=== PATIENT | female | born 1930 | race Caucasian/White ===

== ENCOUNTER → 2017-02-07 | Emergency (ER) | payer OTHER ==
[2017-02-07 19:09] LABS: ADD MAN DIFF? NO
[2017-02-07 19:11] LABS: WHITE BLOOD COUNT 8.8 10^3/ul (4.8-10.8)
[2017-02-07 19:11] LABS: BASOPHIL # 0.1 10^3/ul (0.0-0.1); BASOPHILS % 0.6 % (0.0-2.0); EOSINOPHILS # 0.1 10^3/ul (0.0-0.5); EOSINOPHILS % 1.3 % (0.0-7.0); HEMATOCRIT 35.9 % (37.0-47.0); HEMOGLOBIN 11.2 g/dl (12.0-16.0); LYMPHOCYTES # 3.8 10^3/ul (0.8-2.9); MEAN CORPUSCULAR HEMOGLOBIN 25.6 pg (29.0-33.0); MEAN CORPUSCULAR HGB CONC 31.2 g/dl (32.0-37.0); MEAN CORPUSCULAR VOLUME 82.2 fl (82.0-101.0); MEAN PLATELET VOLUME 10.3 fl (7.4-10.4); MONOCYTE # 0.7 10^3/ul (0.3-0.9); MONOCYTES % 7.5 % (0.0-11.0); NEUTROPHIL # 4.2 10^3/ul (1.6-7.5); NEUTROPHILS % 47.4 % (39.0-77.0); PLATELET COUNT 295 10^3/UL (140-415); RED BLOOD COUNT 4.37 10^6/ul (4.20-5.40); RED CELL DISTRIBUTION WIDTH 15.9 % (11.5-14.5)
[2017-02-07 19:32] LABS: ALANINE AMINOTRANSFERASE 27 IU/L (13-69); ALBUMIN 3.9 g/dl (3.3-4.9); ALBUMIN/GLOBULIN RATIO 1.18; ALKALINE PHOSPHATASE 87 IU/L (42-121); ANION GAP 19 (8-16); ASPARTATE AMINO TRANSFERASE 39 IU/L (15-46); BILIRUBIN,INDIRECT 0.4 mg/dl (0-1.1); BILIRUBIN,TOTAL 0.4 mg/dl (0.2-1.3); BLOOD UREA NITROGEN 9 mg/dl (7-20); CALCIUM 8.9 mg/dl (8.4-10.2); CARBON DIOXIDE 28 mmol/L (21-31); CHLORIDE 96 mmol/L (97-110); CREATININE 0.72 mg/dl (0.44-1.00); GLUCOSE 96 mg/dl (70-220); POTASSIUM 3.5 mmol/L (3.5-5.1); SODIUM 139 mmol/L (135-144); TOTAL PROTEIN 7.2 g/dl (6.1-8.1)
[2017-02-07 19:40] LABS: INR 1.11; PROTIME 14.5 Sec (11.9-14.9); PT RATIO 1.1
[2017-02-07 19:42] LABS: TROPONIN-I 0.016 ng/ml (0.00-0.12)
[2017-02-07 19:43] LABS: LIPASE 112 U/L (23-300)
[2017-02-07 19:53] LABS: PARTIAL THROMBOPLASTIN TIME 32.9 Sec (25.0-35.0)
[2017-02-07 21:53] LABS: ADD UMIC YES; UR ASCORBIC ACID NEGATIVE (NEGATIVE); UR BACTERIA FEW /HPF (NONE SEEN); UR BILIRUBIN (Dip) NEGATIVE (NEGATIVE); UR BLOOD (Dip) NEGATIVE (NEGATIVE); UR CLARITY CLEAR (CLEAR); UR COLOR YELLOW (YELLOW); UR GLUCOSE (Dip) NEGATIVE (NEGATIVE); UR KETONES (Dip) NEGATIVE (NEGATIVE); UR LEUKOCYTE ESTERASE (Dip) TRACE Leu/ul (NEGATIVE); UR NITRITE (Dip) NEGATIVE (NEGATIVE); UR RBC 1 /HPF (0-5); UR SPECIFIC GRAVITY (Dip) 1.012 (1.003-1.030); UR TOTAL PROTEIN (Dip) NEGATIVE (NEGATIVE); UR UROBILINOGEN (Dip) NEGATIVE (NEGATIVE); UR WBC 2 /HPF (0-5)
[2017-02-07] MEDS: ACETAMINOPHEN 325 MG TAB PO (22:41)
== END | disposition home or self-care (01) ==
LOC: E/R 14:09
DX: R10.31 Right lower quadrant pain (principal); R11.10 Vomiting, unspecified; I10 Essential (primary) hypertension; E11.9 Type 2 diabetes mellitus without complications; Z79.4 Long term (current) use of insulin; Z79.84 Long term (current) use of oral hypoglycemic drugs
CPT/HCPCS: 36415; 71010; 74176; 80053; 81001; 82962; 83690; 84484; 85025; 85610; 85730; 99285-25

== ENCOUNTER 2017-02-16 16:16 | Emergency (ER) | payer OTHER ==
[2017-02-16 17:19] LABS: ADD MAN DIFF? NO
[2017-02-16 17:23] LABS: WHITE BLOOD COUNT 9.5 10^3/ul (4.8-10.8)
[2017-02-16 17:23] LABS: BASOPHIL # 0.1 10^3/ul (0.0-0.1); BASOPHILS % 0.7 % (0.0-2.0); EOSINOPHILS # 0.2 10^3/ul (0.0-0.5); EOSINOPHILS % 1.7 % (0.0-7.0); HEMATOCRIT 34.1 % (37.0-47.0); LYMPHOCYTES # 3.3 10^3/ul (0.8-2.9); LYMPHOCYTES % 34.5 % (15.0-51.0); MEAN CORPUSCULAR HEMOGLOBIN 26.6 pg (29.0-33.0); MEAN CORPUSCULAR HGB CONC 32.3 g/dl (32.0-37.0); MEAN CORPUSCULAR VOLUME 82.6 fl (82.0-101.0); MEAN PLATELET VOLUME 10.1 fl (7.4-10.4); MONOCYTE # 0.9 10^3/ul (0.3-0.9); MONOCYTES % 9.5 % (0.0-11.0); NEUTROPHIL # 5.1 10^3/ul (1.6-7.5); NEUTROPHILS % 53.2 % (39.0-77.0); PLATELET COUNT 293 10^3/UL (140-415); RED BLOOD COUNT 4.13 10^6/ul (4.20-5.40); RED CELL DISTRIBUTION WIDTH 16.6 % (11.5-14.5)
[2017-02-16] MEDS: SOD CHLORIDE 0.9% 100 ML (17:30)
[2017-02-16] MEDS: IODIXANOL LOCM 100 ML BTL (17:30)
[2017-02-16 17:44] LABS: ADD UMIC YES; UR ASCORBIC ACID NEGATIVE (NEGATIVE); UR BACTERIA FEW /HPF (NONE SEEN); UR BILIRUBIN (Dip) NEGATIVE (NEGATIVE); UR BLOOD (Dip) NEGATIVE (NEGATIVE); UR CLARITY CLOUDY (CLEAR); UR COLOR YELLOW (YELLOW); UR GLUCOSE (Dip) NEGATIVE (NEGATIVE); UR KETONES (Dip) NEGATIVE (NEGATIVE); UR LEUKOCYTE ESTERASE (Dip) 1+ Leu/ul (NEGATIVE); UR NITRITE (Dip) NEGATIVE (NEGATIVE); UR RBC 1 /HPF (0-5); UR SPECIFIC GRAVITY (Dip) 1.018 (1.003-1.030); UR SQUAMOUS EPITHELIAL CELL MODERATE /HPF (FEW); UR TOTAL PROTEIN (Dip) 1+ mg/dl (NEGATIVE); UR UROBILINOGEN (Dip) 1+ mg/dL (NEGATIVE); UR WBC 14 /HPF (0-5)
[2017-02-16 17:53] LABS: ALANINE AMINOTRANSFERASE 38 IU/L (13-69); ALBUMIN 3.6 g/dl (3.3-4.9); ALBUMIN/GLOBULIN RATIO 1.05; ALKALINE PHOSPHATASE 118 IU/L (42-121); ANION GAP 15 (8-16); ASPARTATE AMINO TRANSFERASE 51 IU/L (15-46); BLOOD UREA NITROGEN 12 mg/dl (7-20); CALCIUM 9.1 mg/dl (8.4-10.2); CARBON DIOXIDE 26 mmol/L (21-31); CHLORIDE 103 mmol/L (97-110); CREATININE 0.69 mg/dl (0.44-1.00); GLUCOSE 96 mg/dl (70-220); LIPASE 188 U/L (23-300); POTASSIUM 4.2 mmol/L (3.5-5.1); SODIUM 140 mmol/L (135-144)
[2017-02-16 17:56] LABS: INR 1.08; PROTIME 14.1 Sec (11.9-14.9); PT RATIO 1.1
[2017-02-16 17:57] LABS: PARTIAL THROMBOPLASTIN TIME 32.1 Sec (25.0-35.0)
[2017-02-16 17:59] LABS: LACTIC ACID 1.5 mmol/L (0.5-2.0)
[2017-02-16 18:16] LABS: TROPONIN-I < 0.012 ng/ml (0.00-0.12)
[2017-02-16] MEDS: KETOROLAC 15 MG INJ IV (19:23)
[2017-02-16] MEDS: FAMOTIDINE 20 MG INJ IV (19:23)
[2017-02-16] MEDS: ONDANSETRON 4 MG INJ IV (19:23)
[2017-02-16] MEDS: CEFTRIAXONE 1 GM/50 ML (PMX) 50 ML IVPB (19:24)
[2017-02-16] MEDS ORDERED: METOCLOPRAMIDE 10 MG INJ (19:31)
[2017-02-16] MEDS: SOD CHLORIDE 0.9% 500 ML IV (19:38)
[2017-02-16] MEDS: DIPHENHYDRAMINE 50 MG INJ IV (20:03)
[2017-02-16] MEDS: METOCLOPRAMIDE 10 MG INJ IV (20:04)
[2017-02-16] MEDS: morphine 4 MG/ML VIAL IV (20:05)
[2017-02-16 20:19] LABS: LACTIC ACID 1.2 mmol/L (0.5-2.0)
== END 2017-02-16 20:22 | disposition home or self-care (01) ==
LOC: E/R 16:16
DX: N30.00 Acute cystitis without hematuria (principal); D64.9 Anemia, unspecified; K44.9 Diaphragmatic hernia without obstruction or gangrene; K21.9 Gastro-esophageal reflux disease without esophagitis; K59.00 Constipation, unspecified; I10 Essential (primary) hypertension; E11.9 Type 2 diabetes mellitus without complications; Z79.4 Long term (current) use of insulin; Z79.84 Long term (current) use of oral hypoglycemic drugs
CPT/HCPCS: 36415; 71045; 74177; 80053; 81001; 83605; 83690; 84484; 85025; 85610; 85730; 87040; 87086; 87400; 93005; 96374; 96375; 99285-25

== ENCOUNTER 2017-06-15 14:48 | Emergency (ER) | payer OTHER ==
[2017-06-15 17:00] LABS: ADD MAN DIFF? NO
[2017-06-15 17:03] LABS: WHITE BLOOD COUNT 7.2 10^3/ul (4.8-10.8)
[2017-06-15 17:03] LABS: BASOPHIL # 0.1 10^3/ul (0.0-0.1); EOSINOPHILS # 0.1 10^3/ul (0.0-0.5); EOSINOPHILS % 1.7 % (0.0-7.0); HEMATOCRIT 32.4 % (37.0-47.0); HEMOGLOBIN 10.1 g/dl (12.0-16.0); LYMPHOCYTES # 2.7 10^3/ul (0.8-2.9); LYMPHOCYTES % 38.1 % (15.0-51.0); MEAN CORPUSCULAR HEMOGLOBIN 25.7 pg (29.0-33.0); MEAN CORPUSCULAR HGB CONC 31.2 g/dl (32.0-37.0); MEAN CORPUSCULAR VOLUME 82.4 fl (82.0-101.0); MEAN PLATELET VOLUME 9.7 fl (7.4-10.4); MONOCYTE # 0.8 10^3/ul (0.3-0.9); MONOCYTES % 10.4 % (0.0-11.0); NEUTROPHIL # 3.5 10^3/ul (1.6-7.5); NEUTROPHILS % 48.5 % (39.0-77.0); PLATELET COUNT 342 10^3/UL (140-415); RED BLOOD COUNT 3.93 10^6/ul (4.20-5.40); RED CELL DISTRIBUTION WIDTH 15.1 % (11.5-14.5)
[2017-06-15 17:18] LABS: INR 1.04; PROTIME 13.7 Sec (11.9-14.9); PT RATIO 1.1
[2017-06-15 17:22] LABS: ALANINE AMINOTRANSFERASE 19 IU/L (13-69); ALBUMIN 3.7 g/dl (3.3-4.9); ALBUMIN/GLOBULIN RATIO 1.12; ALKALINE PHOSPHATASE 85 IU/L (42-121); ANION GAP 18 (8-16); ASPARTATE AMINO TRANSFERASE 28 IU/L (15-46); BILIRUBIN,INDIRECT 0.2 mg/dl (0-1.1); BILIRUBIN,TOTAL 0.2 mg/dl (0.2-1.3); BLOOD UREA NITROGEN 9 mg/dl (7-20); CALCIUM 9.4 mg/dl (8.4-10.2); CARBON DIOXIDE 28 mmol/L (21-31); CHLORIDE 95 mmol/L (97-110); CREATININE 0.61 mg/dl (0.44-1.00); GLUCOSE 134 mg/dl (70-220); LIPASE 135 U/L (23-300); POTASSIUM 3.6 mmol/L (3.5-5.1); SODIUM 137 mmol/L (135-144)
[2017-06-15 17:34] LABS: B-TYPE NATRIURETIC PEPTIDE 353 PG/ML (0-450)
[2017-06-15 17:41] LABS: TROPONIN-I < 0.012 ng/ml (0.00-0.12)
[2017-06-15] MEDS: ONDANSETRON 4 MG INJ IV (18:31)
[2017-06-15] MEDS: FAMOTIDINE 20 MG INJ IV (18:31)
[2017-06-15] MEDS: LIDOCAINE/MYLANTA 40 ML BTL PO (18:31)
[2017-06-15 21:13] LABS: CREATINE KINASE 54 IU/L (23-200)
[2017-06-15 21:26] LABS: CK INDEX 0.6; CK-MB 0.32 ng/ml (0.0-2.4)
[2017-06-15 21:33] LABS: TROPONIN-I < 0.012 ng/ml (0.00-0.12)
== END 2017-06-15 20:40 | disposition home or self-care (01) ==
LOC: E/R 14:48
DX: R10.13 Epigastric pain (principal); R11.0 Nausea; R19.7 Diarrhea, unspecified; D64.9 Anemia, unspecified; I10 Essential (primary) hypertension; E11.9 Type 2 diabetes mellitus without complications; Z79.4 Long term (current) use of insulin
CPT/HCPCS: 36415; 71045; 80053; 82550; 82553; 83690; 83880; 84484; 85025; 85610; 93005; 96374; 96375; 99285-25

== ENCOUNTER 2017-10-10 17:06 | Emergency (ER) | payer OTHER ==
[2017-10-10 21:12] LABS: WHITE BLOOD COUNT 7.6 10^3/ul (4.8-10.8)
[2017-10-10 21:12] LABS: ADD MAN DIFF? NO; BASOPHIL # 0.1 10^3/ul (0.0-0.1); BASOPHILS % 0.7 % (0.0-2.0); EOSINOPHILS # 0.2 10^3/ul (0.0-0.5); HEMATOCRIT 36.8 % (37.0-47.0); HEMOGLOBIN 11.1 g/dl (12.0-16.0); LYMPHOCYTES # 3.6 10^3/ul (0.8-2.9); LYMPHOCYTES % 48.2 % (15.0-51.0); MEAN CORPUSCULAR HEMOGLOBIN 24.8 pg (29.0-33.0); MEAN CORPUSCULAR HGB CONC 30.2 g/dl (32.0-37.0); MEAN CORPUSCULAR VOLUME 82.3 fl (82.0-101.0); MEAN PLATELET VOLUME 9.6 fl (7.4-10.4); MONOCYTE # 0.7 10^3/ul (0.3-0.9); MONOCYTES % 8.7 % (0.0-11.0); NEUTROPHILS % 40.3 % (39.0-77.0); PLATELET COUNT 303 10^3/UL (140-415); RED BLOOD COUNT 4.47 10^6/ul (4.20-5.40); RED CELL DISTRIBUTION WIDTH 18.6 % (11.5-14.5)
[2017-10-10] MEDS: morphine 4 MG/ML VIAL IV (21:21)
[2017-10-10] MEDS: ONDANSETRON 4 MG INJ IV (21:21)
[2017-10-10] MEDS: SOD CHLORIDE 0.9% 1,000 ML IV (21:21)
[2017-10-10 21:31] LABS: ALANINE AMINOTRANSFERASE 22 IU/L (13-69); ALBUMIN 3.7 g/dl (3.3-4.9); ALBUMIN/GLOBULIN RATIO 1.05; ALKALINE PHOSPHATASE 106 IU/L (42-121); ANION GAP 15 (8-16); ASPARTATE AMINO TRANSFERASE 38 IU/L (15-46); BILIRUBIN,INDIRECT 0.2 mg/dl (0-1.1); BILIRUBIN,TOTAL 0.2 mg/dl (0.2-1.3); BLOOD UREA NITROGEN 7 mg/dl (7-20); CALCIUM 9.4 mg/dl (8.4-10.2); CARBON DIOXIDE 27 mmol/L (21-31); CHLORIDE 105 mmol/L (97-110); CREATININE 0.66 mg/dl (0.44-1.00); GLUCOSE 102 mg/dl (70-220); LIPASE 145 U/L (23-300); POTASSIUM 3.8 mmol/L (3.5-5.1); SODIUM 143 mmol/L (135-144); TOTAL PROTEIN 7.2 g/dl (6.1-8.1)
[2017-10-10 22:42] LABS: ADD UMIC YES; UR ASCORBIC ACID NEGATIVE (NEGATIVE); UR BACTERIA FEW /HPF (NONE SEEN); UR BILIRUBIN (Dip) NEGATIVE (NEGATIVE); UR BLOOD (Dip) NEGATIVE (NEGATIVE); UR CLARITY CLEAR (CLEAR); UR COLOR YELLOW (YELLOW); UR GLUCOSE (Dip) NEGATIVE (NEGATIVE); UR KETONES (Dip) NEGATIVE (NEGATIVE); UR LEUKOCYTE ESTERASE (Dip) 1+ Leu/ul (NEGATIVE); UR MUCUS FEW /HPF (NONE SEEN); UR NITRITE (Dip) NEGATIVE (NEGATIVE); UR RBC 1 /HPF (0-5); UR SPECIFIC GRAVITY (Dip) 1.005 (1.003-1.030); UR TOTAL PROTEIN (Dip) NEGATIVE (NEGATIVE); UR UROBILINOGEN (Dip) NEGATIVE (NEGATIVE); UR WBC 6 /HPF (0-5)
== END 2017-10-10 22:58 | disposition home or self-care (01) ==
LOC: E/R 17:06
DX: R10.84 Generalized abdominal pain (principal); R19.7 Diarrhea, unspecified; I10 Essential (primary) hypertension; E11.9 Type 2 diabetes mellitus without complications; Z79.4 Long term (current) use of insulin
CPT/HCPCS: 36415; 74176; 80053; 81001; 83690; 85025; 96374; 96375; 99285-25

== ENCOUNTER 2018-07-11 09:12 | Inpatient (IN) | payer OTHER ==
[2018-07-11] MEDS: NITROGLYCERIN 2% 1 GM OINT PKT TD (10:07)
[2018-07-11] MEDS: ASPIRIN 81 MG TAB PO (10:08)
[2018-07-11 10:20] LABS: ADD MAN DIFF? NO
[2018-07-11] MEDS: morphine 4 MG/ML VIAL IV (10:21)
[2018-07-11] MEDS: ONDANSETRON 4 MG INJ IV (10:21)
[2018-07-11] MEDS: NITROGLYCERIN (SL) 0.4 MG TAB SL ×2 (10:21→12:58)
[2018-07-11 10:24] LABS: BASOPHIL # 0.1 10^3/ul (0.0-0.1); EOSINOPHILS # 0.1 10^3/ul (0.0-0.5); EOSINOPHILS % 2.3 % (0.0-7.0); HEMATOCRIT 35.4 % (37.0-47.0); HEMOGLOBIN 10.9 g/dl (12.0-16.0); LYMPHOCYTES # 2.5 10^3/ul (0.8-2.9); LYMPHOCYTES % 40.8 % (15.0-51.0); MEAN CORPUSCULAR HEMOGLOBIN 27.4 pg (29.0-33.0); MEAN CORPUSCULAR HGB CONC 30.8 g/dl (32.0-37.0); MEAN CORPUSCULAR VOLUME 88.9 fl (82.0-101.0); MONOCYTE # 0.6 10^3/ul (0.3-0.9); MONOCYTES % 9.2 % (0.0-11.0); NEUTROPHIL # 2.9 10^3/ul (1.6-7.5); NEUTROPHILS % 46.5 % (39.0-77.0); PLATELET COUNT 284 10^3/UL (140-415); RED BLOOD COUNT 3.98 10^6/ul (4.20-5.40); RED CELL DISTRIBUTION WIDTH 15.5 % (11.5-14.5)
[2018-07-11 10:24] LABS: WHITE BLOOD COUNT 6.2 10^3/ul (4.8-10.8)
[2018-07-11 10:38] LABS: ADD UMIC YES; UR ASCORBIC ACID NEGATIVE (NEGATIVE); UR BACTERIA MODERATE /HPF (NONE SEEN); UR BILIRUBIN (Dip) NEGATIVE (NEGATIVE); UR BLOOD (Dip) 1+ mg/dL (NEGATIVE); UR CLARITY CLOUDY (CLEAR); UR COLOR YELLOW (YELLOW); UR GLUCOSE (Dip) NEGATIVE (NEGATIVE); UR KETONES (Dip) NEGATIVE (NEGATIVE); UR LEUKOCYTE ESTERASE (Dip) 3+ Leu/ul (NEGATIVE); UR NITRITE (Dip) POSITIVE (NEGATIVE); UR NONSQUAMOUS EPITHELIAL CELL 2 /HPF (NONE SEEN); UR RBC 18 /HPF (0-5); UR RENAL EPITHELIAL CELL FEW /HPF (NONE SEEN); UR SPECIFIC GRAVITY (Dip) 1.016 (1.003-1.030); UR SQUAMOUS EPITHELIAL CELL FEW /HPF (FEW); UR TOTAL PROTEIN (Dip) 1+ mg/dl (NEGATIVE); UR TRANSITIONAL EPI CELL FEW /HPF (NONE SEEN); UR UROBILINOGEN (Dip) NEGATIVE (NEGATIVE); UR WBC > 182 /HPF (0-5)
[2018-07-11 10:39] LABS: ALANINE AMINOTRANSFERASE 18 IU/L (13-69); ALBUMIN 3.6 g/dl (3.3-4.9); ALKALINE PHOSPHATASE 92 IU/L (42-121); ASPARTATE AMINO TRANSFERASE 30 IU/L (15-46); BILIRUBIN,INDIRECT 0.5 mg/dl (0-1.1); BILIRUBIN,TOTAL 0.5 mg/dl (0.2-1.3); LIPASE 200 U/L (23-300); TOTAL PROTEIN 6.8 g/dl (6.1-8.1)
[2018-07-11 10:40] LABS: ANION GAP 8 (5-13); BLOOD UREA NITROGEN 10 mg/dl (7-20); CALCIUM 9.5 mg/dl (8.4-10.2); CARBON DIOXIDE 25 mmol/L (21-31); CHLORIDE 108 mmol/L (97-110); GLUCOSE 134 mg/dl (70-220); POTASSIUM 4.4 mmol/L (3.5-5.1); SODIUM 141 mmol/L (135-144)
[2018-07-11 10:51] LABS: TROPONIN-I < 0.012 ng/ml (0.000-0.120)
[2018-07-11] MEDS: CEFTRIAXONE 1 GM/50 ML (PMX) 50 ML IVPB (11:17)
[2018-07-11] MEDS ORDERED: ACETAMINOPHEN 325 MG TAB PO ×2 (11:30→14:00)
[2018-07-11] MEDS ORDERED: ONDANSETRON 4 MG INJ IV ×2 (11:30→14:00)
[2018-07-11] MEDS ORDERED: GLUCOSE GEL 15 GRAM TUBE BUCCAL (14:00)
[2018-07-11] MEDS ORDERED: DEXTROSE 50% 50 ML SYRINGE IV ×2 (14:00)
[2018-07-11] MEDS ORDERED: GLUCAGON 1 MG INJ IM (14:00)
[2018-07-11] MEDS ORDERED: GLUCOSE GEL 15 GRAM TUBE PO ×2 (14:00)
[2018-07-11] MEDS ORDERED: NACL 0.9% 3 ML SYG IV (14:00)
[2018-07-11 15:16] LABS: CREATINE KINASE 33 IU/L (23-200)
[2018-07-11 15:21] LABS: HEMOGLOBIN A1C 6.2 % (0-5.9)
[2018-07-11 15:27] LABS: CK INDEX 0.7; CK-MB < 0.22 ng/ml (0.0-2.4); TROPONIN-I < 0.012 ng/ml (0.000-0.120)
[2018-07-11 15:58] LABS: B-TYPE NATRIURETIC PEPTIDE 173 PG/ML (0-450)
[2018-07-11] MEDS: INSULIN ASPART [NOVOLOG] 3 ML PEN SC ×5 (17:55→22:13)
[2018-07-11] MEDS: HYDROCODONE/APAP (5/325) TAB PO (18:59)
[2018-07-11 21:28] LABS: CREATINE KINASE 38 IU/L (23-200)
[2018-07-11 21:40] LABS: CK INDEX 0.6; CK-MB < 0.22 ng/ml (0.0-2.4); TROPONIN-I < 0.012 ng/ml (0.000-0.120)
[2018-07-11] MEDS: INSULIN GLARGINE [LANTus] (100 UNITS/ML) SYG SC (22:12)
[2018-07-12] MEDS: HYDROCODONE/APAP (5/325) TAB PO ×3 (05:06→19:44)
[2018-07-12 06:11] LABS: ADD MAN DIFF? NO
[2018-07-12 06:23] LABS: WHITE BLOOD COUNT 5.8 10^3/ul (4.8-10.8)
[2018-07-12 06:23] LABS: BASOPHIL # 0.1 10^3/ul (0.0-0.1); EOSINOPHILS # 0.2 10^3/ul (0.0-0.5); EOSINOPHILS % 2.8 % (0.0-7.0); HEMOGLOBIN 10.4 g/dl (12.0-16.0); LYMPHOCYTES # 3.2 10^3/ul (0.8-2.9); LYMPHOCYTES % 55.4 % (15.0-51.0); MEAN CORPUSCULAR HEMOGLOBIN 27.4 pg (29.0-33.0); MEAN CORPUSCULAR HGB CONC 31.5 g/dl (32.0-37.0); MEAN CORPUSCULAR VOLUME 87.1 fl (82.0-101.0); MEAN PLATELET VOLUME 9.8 fl (7.4-10.4); MONOCYTE # 0.6 10^3/ul (0.3-0.9); NEUTROPHIL # 1.8 10^3/ul (1.6-7.5); NEUTROPHILS % 30.6 % (39.0-77.0); PLATELET COUNT 273 10^3/UL (140-415); RED BLOOD COUNT 3.79 10^6/ul (4.20-5.40); RED CELL DISTRIBUTION WIDTH 15.5 % (11.5-14.5)
[2018-07-12] MEDS: PANTOPRAZOLE (EC) 40 MG TAB PO (06:27)
[2018-07-12 06:42] LABS: CHOL/HDL RATIO 3.9 RATIO; CHOLESTEROL 149 mg/dl (100-200); HDL CHOLESTEROL 38 mg/dl (33-92); LDL CHOLESTEROL,CALCULATED 76 mg/dl; MAGNESIUM 1.9 mg/dl (1.7-2.5); TRIGLYCERIDES 175 mg/dl (0-149)
[2018-07-12 06:46] LABS: ALANINE AMINOTRANSFERASE 24 IU/L (13-69); ALBUMIN 3.2 g/dl (3.3-4.9); ALBUMIN/GLOBULIN RATIO 1.06; ALKALINE PHOSPHATASE 71 IU/L (42-121); ANION GAP 6 (5-13); ASPARTATE AMINO TRANSFERASE 32 IU/L (15-46); BILIRUBIN,INDIRECT 0.4 mg/dl (0-1.1); BILIRUBIN,TOTAL 0.4 mg/dl (0.2-1.3); BLOOD UREA NITROGEN 8 mg/dl (7-20); CALCIUM 8.7 mg/dl (8.4-10.2); CARBON DIOXIDE 26 mmol/L (21-31); CHLORIDE 107 mmol/L (97-110); CREATININE 0.58 mg/dl (0.44-1.00); GLUCOSE 94 mg/dl (70-220); POTASSIUM 3.8 mmol/L (3.5-5.1); SODIUM 139 mmol/L (135-144); TOTAL PROTEIN 6.2 g/dl (6.1-8.1)
[2018-07-12] MEDS: INSULIN ASPART [NOVOLOG] 3 ML PEN SC ×7 (07:55→21:00)
[2018-07-12] MEDS: LOSARTAN 25 MG TAB PO (08:13)
[2018-07-12] MEDS: CHOLECALCIFEROL 1,000 UNIT TAB PO (08:13)
[2018-07-12] MEDS: ENOXAPARIN 40 MG/0.4 ML SYG SC (08:26)
[2018-07-12] MEDS: INSULIN GLARGINE [LANTus] (100 UNITS/ML) SYG SC (21:42)
[2018-07-13] MEDS: HYDROCODONE/APAP (5/325) TAB PO ×2 (01:45→10:53)
[2018-07-13] MEDS: PANTOPRAZOLE (EC) 40 MG TAB PO (06:30)
[2018-07-13 06:42] LABS: ADD MAN DIFF? NO
[2018-07-13 06:50] LABS: BASOPHIL # 0.1 10^3/ul (0.0-0.1); BASOPHILS % 0.8 % (0.0-2.0); EOSINOPHILS # 0.2 10^3/ul (0.0-0.5); EOSINOPHILS % 3.1 % (0.0-7.0); HEMATOCRIT 34.6 % (37.0-47.0); HEMOGLOBIN 10.6 g/dl (12.0-16.0); LYMPHOCYTES % 49.6 % (15.0-51.0); MEAN CORPUSCULAR HEMOGLOBIN 27.2 pg (29.0-33.0); MEAN CORPUSCULAR HGB CONC 30.6 g/dl (32.0-37.0); MEAN CORPUSCULAR VOLUME 88.7 fl (82.0-101.0); MEAN PLATELET VOLUME 9.5 fl (7.4-10.4); MONOCYTE # 0.6 10^3/ul (0.3-0.9); MONOCYTES % 10.4 % (0.0-11.0); NEUTROPHIL # 2.2 10^3/ul (1.6-7.5); NEUTROPHILS % 35.9 % (39.0-77.0); PLATELET COUNT 272 10^3/UL (140-415); RED CELL DISTRIBUTION WIDTH 15.5 % (11.5-14.5)
[2018-07-13 06:50] LABS: WHITE BLOOD COUNT 6.1 10^3/ul (4.8-10.8)
[2018-07-13 07:08] LABS: ANION GAP 4 (5-13); BLOOD UREA NITROGEN 11 mg/dl (7-20); CALCIUM 8.9 mg/dl (8.4-10.2); CARBON DIOXIDE 31 mmol/L (21-31); CHLORIDE 106 mmol/L (97-110); CREATININE 0.76 mg/dl (0.44-1.00); GLUCOSE 125 mg/dl (70-220); POTASSIUM 4.9 mmol/L (3.5-5.1); SODIUM 141 mmol/L (135-144)
[2018-07-13 07:21] LABS: MAGNESIUM 2.1 mg/dl (1.7-2.5); TROPONIN-I < 0.012 ng/ml (0.000-0.120)
[2018-07-13 07:21] LABS: PHOSPHORUS 4.2 mg/dl (2.5-4.9)
[2018-07-13] MEDS: INSULIN ASPART [NOVOLOG] 3 ML PEN SC ×4 (07:55→12:22)
[2018-07-13] MEDS: CHOLECALCIFEROL 1,000 UNIT TAB PO (08:16)
[2018-07-13] MEDS: LOSARTAN 25 MG TAB PO (08:17)
[2018-07-13] MEDS: ENOXAPARIN 40 MG/0.4 ML SYG SC (08:25)
[2018-07-13] MEDS: CEFTRIAXONE 1 GM/50 ML (PMX) 50 ML IVPB (11:27)
== END 2018-07-13 16:17 | disposition home or self-care (01) | DRG 313 ==
LOC: E/R 09:12 → TEL 11:27
DX: R07.89 Other chest pain (principal); N39.0 Urinary tract infection, site not specified; I10 Essential (primary) hypertension; E11.9 Type 2 diabetes mellitus without complications; K22.8 Other specified diseases of esophagus; K20.9 Esophagitis, unspecified; E78.5 Hyperlipidemia, unspecified; K44.9 Diaphragmatic hernia without obstruction or gangrene; B96.20 Unspecified Escherichia coli [E. coli] as the cause of diseases classified elsewhere
CPT/HCPCS: 36415; 71045; 76775; 80048; 80053; 80061; 80076; 81001; 82550; 82553; 82962; 83036; 83690; 83735; 83880; 84100; 84484; 85025; 87086; 93005; 93306; 96374; 96375; 99285-25; G0378